=== PATIENT | male | born 1985 ===

== ENCOUNTER 2018-11-27 00:11 | Emergency (ER) | payer SELFPAY ==
[2018-11-27 00:15] VITALS: BMI 36.9
--- NOTE | 2018-11-27 00:20 | ED PDOC ---
Arrival/HPI - General Historian: Patient - History of Present Illness Narrative History of Present Illness (Text): 11/27/18 00:17 33 y/o male, no significant pmh, nkda, c/o lt. sided anterior chest pain after pushing heavy object x 2 hours. Pt. stated that he was pushing a set of pallet with heavy objects, started to have lt. anterior pectoralis major muscle pain, aggravated by movement and pushing, non-radiating, no pain medication given or taken, no numbness or tingling, no rash, no night sweat, no dizziness, no other medical or psychological complaints. <Piotr Card - Last Filed: 11/27/18 02:00> Past Medical History - Provider Review Nursing Documentation Reviewed: Yes <Piotr Card - Last Filed: 11/27/18 02:00> Family/Social History - Physician Review Nursing Documentation Reviewed: Yes Family/Social History: Unknown Family HX <Piotr Card - Last Filed: 11/27/18 02:00> Allergies/Home Meds <Piotr Card - Last Filed: 11/27/18 02:00> <Jose Tee - Last Filed: 11/27/18 02:01> Allergies/Adverse Reactions: Allergies No Known Allergies Allergy (Verified 11/27/18 00:16) Review of Systems - Review of Systems Constitutional: absent: Fatigue, Fevers Eyes: absent: Vision Changes ENT: absent: Hearing Changes Respiratory: absent: SOB, Cough Cardiovascular: Chest Pain Gastrointestinal: absent: Abdominal Pain, Nausea, Vomiting Musculoskeletal: Myalgias. absent: Arthralgias, Back Pain Skin: absent: Rash, Pruritis Neurological: absent: Headache, Dizziness Psychiatric: absent: Anxiety, Depression <Piotr Card - Last Filed: 11/27/18 02:00> Physical Exam Pain Distress: Moderate - Systems Exam Head: Present: Atraumatic, Normocephalic Pupils: Present: PERRL Extroacular Muscles: Present: EOMI Conjunctiva: Present: Normal Mouth: Present: Moist Mucous Membranes Neck: Present: Normal Range of Motion Respiratory/Chest: Present: Clear to Auscultation, Good Air Exchange, Tender to Palpation (Pain is 100 % reproducible by palpating on Lt. medial outter pectoralis major muscle region and pain is 100% reproducible by moving the lt. pectoralis major muscle region, ). No: Respiratory Distress, Accessory Muscle Use, Wheezes, Decreased Breath Sounds, Rales, Retracting, Rhonchi, Tachypneic Cardiovascular: Present: Regular Rate and Rhythm, Normal S1, S2. No: Murmurs Abdomen: No: Tenderness, Distention, Peritoneal Signs Back: Present: Normal Inspection Upper Extremity: Present: Normal Inspection, Normal ROM, NORMAL PULSES, Neurovascularly Intact, Capillary Refill < 2s. No: Cyanosis, Edema, Tenderness, Swelling, Deformity Lower Extremity: Present: Normal Inspection. No: Edema Neurological: Present: GCS=15, CN II-XII Intact, Speech Normal, Motor Func Grossly Intact, Gait Normal, Memory Normal Skin: Present: Warm, Dry, Normal Color. No: Rashes Psychiatric: Present: Alert, Oriented x 3, Normal Insight, Normal Concentration <Piotr Card - Last Filed: 11/27/18 02:00> Vital Signs Temp Pulse Resp BP Pulse Ox 11/27/18 00:32 98.2 F 75 18 115/67 97 <Jose Tee - Last Filed: 11/27/18 02:01> Medical Decision Making ED Course and Treatment: 11/27/18 00:20 -EKG -Chest xray -Toradol IM -Observe and reassess 11/27/18 02:00 -EKG: NSR @ 70 BPM, mild early repolarization, no ST elevation or depression, no T wave inversion, no previous ekg available for comparison -Chest xray: ER wet read: no active disease -PERC is negative. -Chest pain resolved, no pain, results discussed with the patient. -Discharge home with duexis, flexeril, bed rest, ice compression, follow up with your own pmd and visual supervisor within 2 days, return to the ER for any new or worsening signs or symptoms. - RAD Interpretation Photo Finish Photographer: Radiologist - EKG Interpretation EKG Interpretation (Text): 11/27/18 00:29 -EKG: NSR @ 70 BPM, mild early repolarization, no ST elevation or depression, no T wave inversion, no previous ekg available for comparison Interpreted by ED Physician: Yes Type: 12 lead EKG Comparison: No previous EKG avail. <Piotr Card - Last Filed: 11/27/18 02:00> - RAD Interpretation Radiology Orders: 11/27/18 00:21 CHEST TWO VIEWS (PA/LAT) [RAD] Stat - Medication Orders Current Medication Orders: Discontinued Medications Cyclobenzaprine HCl (Flexeril) 10 mg PO STAT STA Stop: 11/27/18 00:22 Last Admin: 11/27/18 00:53 Dose: 10 mg Ketorolac Tromethamine (Toradol) 60 mg IM STAT STA Stop: 11/27/18 00:22 Last Admin: 11/27/18 00:53 Dose: 60 mg MAR Pain Assessment Document 11/27/18 00:53 RD (Rec: 11/27/18 00:58 RD [facility] [id number]) Pain Reassessment Is this a pain reassessment? No Sleep Is patient sleeping during reassessment? No Presence of Pain Presence of Pain Yes IM Administration Charges Document 11/27/18 00:53 RD (Rec: 11/27/18 00:58 RD [facility] [id number]) Injection Site MAR Injection Site Left Deltoid Charges for Administration # of IM Administrations 1 <Jose Tee - Last Filed: 11/27/18 02:01> - PA / BIOLOGICS SPECIALIST / Resident Statement TWILA has reviewed & agrees with the documentation as recorded. <Piotr Card - Last Filed: 11/27/18 02:00> - PA / BIOLOGICS SPECIALIST / Resident Statement TWILA has reviewed & agrees with the documentation as recorded. <Jose Tee - Last Filed: 11/27/18 02:01> Disposition/Present on Arrival - Present on Arrival Any Indicators Present on Arrival: No History of DVT/PE: No History of Uncontrolled Diabetes: No Urinary Catheter: No History of Decub. Ulcer: No - Disposition Have Diagnosis and Disposition been Completed?: Yes Disposition Time: 02:00 Patient Plan: Discharge <Piotr Card - Last Filed: 11/27/18 02:00> <Jose Tee - Last Filed: 11/27/18 02:01> - Disposition Diagnosis: Atypical chest pain Patient Problems: Current Active Problems Problem Status Onset Atypical chest pain Acute Condition: IMPROVED Discharge Instructions (ExitCare): Chest Pain (ED) Additional Instructions: -Discharge home with duexis, flexeril, bed rest, ice compression, follow up with your own pmd and visual supervisor within 2 days, return to the ER for any new or worsening signs or symptoms. Prescriptions: Cyclobenzaprine [Cyclobenzaprine HCl] 10 mg PO TID PRN #21 tab PRN Reason: Other Ibuprofen/Famotidine [Duexis 26.6 mg-800 mg] 1 tab PO TID PRN #30 tab PRN Reason: Other Referrals: Seth Díaz MD [Staff Provider] - Follow up with primary [facility] [place] [Outside] - Follow up with primary Forms: WORK NOTE
[2018-11-27 00:33] VITALS: RESP 18; TEMP 98.2; O2SAT 97
[2018-11-27 02:06] VITALS: BP 113/65; PULSE 76
--- NOTE | 2018-11-27 10:01 | CARD ---
APPROVED REPORT Date of service: 11/27/2018 EKG Measurement Heart [id number] <Conclusion> Normal sinus rhythm Early repolarization Normal ECG
--- NOTE | 2018-11-27 12:11 | RAD ---
Date of service: 11/27/2018 HISTORY: chest pain COMPARISON: No prior. TECHNIQUE: Chest PA and lateral FINDINGS: LUNGS: No active pulmonary disease. PLEURA: No significant pleural effusion identified. No pneumothorax apparent. CARDIOVASCULAR: No aortic atherosclerotic calcification present. Normal cardiac size. No pulmonary vascular congestion. OSSEOUS STRUCTURES: No significant abnormalities. VISUALIZED UPPER ABDOMEN: Normal. OTHER FINDINGS: None. IMPRESSION: No active disease.
== END 2018-11-27 02:05 | disposition home or self-care (01) ==
LOC: ED 00:11
DX: R07.89 Other chest pain (principal)
CPT/HCPCS: 71046; 93005; 96372; 99283; J1885